=== PATIENT | female | born 1940 | race African-American/Black ===

== ENCOUNTER 2023-05-16 18:02 | Emergency (ER) | payer OTHER ==
[~2023-05-16] VITALS: Ht 170.2 cm; Wt 59.0 kg
[2023-05-16 18:12] VITALS: O2SAT 100
[2023-05-16 19:32] VITALS: PULSE 78; RESP 16; TEMP 98.7
[2023-05-16] MEDS ORDERED: PIPERACILLIN/TAZ 3.375G PREMIX 50 ML IV NR (20:00)
[2023-05-16] MEDS ORDERED: PIPERACILLIN/TAZOBACTAM 3.375GM/50ML PREMIX IV ONE (20:00)
[2023-05-16 21:46] LABS: CHLORIDE 110 mEq/L (98-107)
[2023-05-16 21:54] LABS: HEMATOCRIT. 30.1 % (36.0-48.0); HEMOGLOBIN. 9.9 g/dL (12.0-16.0); MEAN CORPUSCULAR HEMOGLOBIN 26.2 pg (28.0-32.0); MEAN CORPUSCULAR VOLUME 79.7 fL (81.0-99.0); MEAN PLATELET VOLUME 6.8 fl (7.4-10.4); PLATELET 410 x1000/uL (130-400); RED BLOOD CELL COUNT 3.77 mill/uL (4.2-5.4); RED CELL DISTRIBUTION WIDTH 16.9 % (11.6-14.6)
[2023-05-16 23:32] LABS: PLATELET ESTIMATE SLIGHTLY INCREASED
[2023-05-17] MEDS ORDERED: HYDROCODONE/ACETAMINOPHEN 5/325MG TABLET PO ONE (01:30)
[2023-05-17] MEDS ORDERED: CLONIDINE 0.1MG TABLET PO ONE (02:30)
[2023-05-17] MEDS ORDERED: HYDROCODONE/ACETAMINOPHEN 5/325MG TABLET PO NR (02:45)
[2023-05-17] MEDS ORDERED: CLONIDINE 0.1MG TABLET PO NR (02:45)
[2023-05-17] MEDS ORDERED: LABETALOL 5MG/ML SYR 20 MG/4 ML SYRINGE IV ONE (04:00)
[2023-05-17 04:04] VITALS: BP 201/97
== END 2023-05-17 05:02 | disposition short-term general hospital (02) ==
LOC: ER 18:02
DX: L03.116 Cellulitis of left lower limb (principal); I82.409 Acute embolism and thrombosis of unspecified deep veins of unspecified lower extremity; I49.9 Cardiac arrhythmia, unspecified
CPT/HCPCS: 99285; 96366; 96365; 93971; 71045; 80053; 83880; 83605; 85025; 87040; 84484; 36415; 73590; 93005; 96375; J3490; J2543

== ENCOUNTER 2023-06-05 18:25 | Emergency (ER) | payer OTHER ==
[~2023-06-05] VITALS: Ht 160 cm; Wt 66.0 kg
[2023-06-05 18:29] VITALS: O2SAT 98
[2023-06-05] MEDS ORDERED: VANCOMYCIN 1G PREMIX 200 ML IV ONE (19:00)
[2023-06-05] MEDS ORDERED: PIPERACILLIN/TAZ 3.375G PREMIX 50 ML IV ONE (19:00)
[2023-06-05 19:49] LABS: BASOPHILS % 0.2 % (0.0-2.0); EOSINOPHILS % 0.5 % (0.0-5.0); HEMATOCRIT. 22.6 % (36.0-48.0); HEMOGLOBIN. 7.6 g/dL (12.0-16.0); LYMPHOCYTES % 9.1 % (20.0-50.0); MEAN CORPUSCULAR HEMOGLOBIN 25.4 pg (28.0-32.0); MEAN PLATELET VOLUME 6.5 fl (7.4-10.4); MONOCYTES % 8.5 % (2.0-8.0); NEUTROPHILS % 81.7 % (40.0-76.0); PLATELET 569 x1000/uL (130-400); RED BLOOD CELL COUNT 2.97 mill/uL (4.2-5.4); RED CELL DISTRIBUTION WIDTH 17.5 % (11.6-14.6)
[2023-06-05 19:56] LABS: PROTHROMBIN TIME 10.6 sec (9.6-11.0)
[2023-06-05 20:18] LABS: CHLORIDE 111 mEq/L (98-107)
[2023-06-05 23:50] VITALS: BP 157/55; PULSE 94; RESP 14; TEMP 98.1
== END 2023-06-06 00:13 | disposition short-term general hospital (02) ==
LOC: ER 18:25 → CANBEDREQ 06-07 22:08
DX: L03.116 Cellulitis of left lower limb (principal); I10 Essential (primary) hypertension; Z86.73 Personal history of transient ischemic attack (TIA), and cerebral infarction without residual deficits
CPT/HCPCS: 36415; 73660; 80053; 84145; 85025; 99284

== ENCOUNTER 2023-07-11 19:50 | Emergency (ER) | payer OTHER ==
[~2023-07-11] VITALS: Ht 152.4 cm; Wt 50.0 kg
[2023-07-11 19:54] VITALS: O2SAT 99
[2023-07-11] MEDS ORDERED: VANCOMYCIN 1G PREMIX 200 ML IV SCH (23:00)
[2023-07-11] MEDS ORDERED: CEFEPIME 2,000 MG in DEXT 5% WATER 100 ML IV SCH (23:00)
[2023-07-11 23:50] LABS: BASOPHILS % 0.9 % (0.0-2.0); DIFFERENTIAL COMMENT 0; EOSINOPHILS % 2.1 % (0.0-5.0); HEMATOCRIT. 26.6 % (36.0-48.0); LYMPHOCYTES % 15.6 % (20.0-50.0); MEAN CORPUSCULAR HEMOGLOBIN 25.4 pg (28.0-32.0); MEAN CORPUSCULAR VOLUME 74.7 fL (81.0-99.0); MEAN PLATELET VOLUME 6.5 fl (7.4-10.4); MONOCYTES % 6.9 % (2.0-8.0); NEUTROPHILS % 74.5 % (40.0-76.0); PLATELET 625 x1000/uL (130-400); RED BLOOD CELL COUNT 3.56 mill/uL (4.2-5.4); RED CELL DISTRIBUTION WIDTH 21.9 % (11.6-14.6); WHITE BLOOD COUNT 7.7 x1000/uL (4.5-11.0)
[2023-07-12 00:08] LABS: CHLORIDE 107 mEq/L (98-107); INDEX HEMOLYSI 1 (1-3); INDEX ICTERIC 1 (1-4); INDEX LIPEMIC 1 (1-3); POTASSIUM 3.4 mEq/L (3.5-5.1); SODIUM 138 mEq/L (136-145)
[2023-07-12 00:30] LABS: UREA NITROGEN BLOOD 24 mg/dL (7-21)
[2023-07-12 00:53] LABS: ALBUMIN 2.6 g/dL (3.4-5.0); ASPARTATE AMINOTRANSFERASE 13 IU/L (15-37); BILIRUBIN TOTAL 0.4 mg/dL (0.1-1.0); CALCIUM 8.8 mg/dL (8.5-10.1); CARBON DIOXIDE 29 mEq/L (21-32); CREATININE 1.7 mg/dL (0.6-1.3); GLUCOSE 103 mg/dL (70-105)
[2023-07-12 00:54] LABS: ALANINE AMINOTRANSFERASE 22 IU/L (13-61)
[2023-07-12 03:30] VITALS: BP 126/50; PULSE 72; RESP 20; TEMP 98
== END 2023-07-12 04:00 | disposition short-term general hospital (02) ==
LOC: ER 20:06
DX: L97.919 Non-pressure chronic ulcer of unspecified part of right lower leg with unspecified severity (principal); I10 Essential (primary) hypertension; Z20.822 Contact with and (suspected) exposure to COVID-19; Z86.73 Personal history of transient ischemic attack (TIA), and cerebral infarction without residual deficits
CPT/HCPCS: 99285; 96365; 96367; 80053; 85025; 87040; 36415; 87426; J0692; J3370; J7060; C9803

== ENCOUNTER 2023-08-22 15:28 | Emergency (ER) | payer OTHER ==
[~2023-08-22] VITALS: Ht 162.6 cm; Wt 56.0 kg
[2023-08-22] MEDS ORDERED: AMLODIPINE (15:43)
[2023-08-22] MEDS ORDERED: ATORVASTATIN (15:43)
[2023-08-22] MEDS ORDERED: GABAPENTIN (15:43)
[2023-08-22] MEDS ORDERED: LISINOPRIL (15:43)
[2023-08-22 15:44] VITALS: O2SAT 100
[2023-08-22] MEDS ORDERED: ELIQUIS (15:44)
[2023-08-22 16:13] LABS: HEMATOCRIT. 30.8 % (36.0-48.0); HEMOGLOBIN. 9.7 g/dL (12.0-16.0); MEAN CORPUSCULAR HEMOGLOBIN 23.4 pg (28.0-32.0); MEAN CORPUSCULAR HGB CONC 31.6 g/dL (31.0-37.0); MEAN CORPUSCULAR VOLUME 74.3 fL (81.0-99.0); MEAN PLATELET VOLUME 6.6 fl (7.4-10.4); PLATELET 483 x1000/uL (130-400); RED BLOOD CELL COUNT 4.15 mill/uL (4.2-5.4); RED CELL DISTRIBUTION WIDTH 22.2 % (11.6-14.6); WHITE BLOOD COUNT 8.5 x1000/uL (4.5-11.0)
[2023-08-22 16:17] LABS: CHLORIDE 106 mEq/L (98-107); INDEX HEMOLYSI 1 (1-3); INDEX ICTERIC 1 (1-4); INDEX LIPEMIC 1 (1-3); POTASSIUM 3.6 mEq/L (3.5-5.1); SODIUM 139 mEq/L (136-145)
[2023-08-22 16:18] LABS: CALCIUM 9.6 mg/dL (8.5-10.1)
[2023-08-22 16:20] LABS: PROTHROMBIN TIME 10.3 sec (9.6-11.0)
[2023-08-22 16:23] LABS: DIFFERENTIAL COMMENT 1
[2023-08-22 16:47] LABS: ALANINE AMINOTRANSFERASE 24 IU/L (13-61); ALBUMIN 2.7 g/dL (3.4-5.0); ASPARTATE AMINOTRANSFERASE 20 IU/L (15-37); CARBON DIOXIDE 25 mEq/L (21-32); CREATININE 1.4 mg/dL (0.6-1.3); GLUCOSE 107 mg/dL (70-105); PROTEIN TOTAL 6.8 g/dL (6.0-8.3); UREA NITROGEN BLOOD 18 mg/dL (7-21)
[2023-08-22 16:54] LABS: ANISOCYTOSIS 2+; HYPOCHROMASIA 1+; MICROCYTOSIS 2+; PLATELET ESTIMATE INCREASED
[2023-08-22 17:04] LABS: BILIRUBIN TOTAL 0.6 mg/dL (0.1-1.0)
[2023-08-22] MEDS ORDERED: VANCOMYCIN 1G PREMIX 200 ML IV SCH (19:45)
[2023-08-22] MEDS ORDERED: PIPERACILLIN/TAZOBACTAM 3.375GM/50ML PREMIX IV ONE (19:45)
[2023-08-22] MEDS ORDERED: PIPERACILLIN/TAZ 3.375G PREMIX 50 ML IV NR (20:00)
[2023-08-22 21:03] VITALS: TEMP 97.7
[2023-08-23 00:01] VITALS: BP 145/51; PULSE 80; RESP 20
== END 2023-08-23 | disposition short-term general hospital (02) ==
LOC: ER 15:28
DX: T74.91XA Unspecified adult maltreatment, confirmed, initial encounter (principal); S00.212A Abrasion of left eyelid and periocular area, initial encounter; L97.929 Non-pressure chronic ulcer of unspecified part of left lower leg with unspecified severity; R41.82 Altered mental status, unspecified; I10 Essential (primary) hypertension; Z86.73 Personal history of transient ischemic attack (TIA), and cerebral infarction without residual deficits; Z98.890 Other specified postprocedural states; X58.XXXA Exposure to other specified factors, initial encounter; Y93.89 Activity, other specified; Y92.89 Other specified places as the place of occurrence of the external cause; Y99.8 Other external cause status
CPT/HCPCS: 99285; 70450; 96365; 87426; 80053; 85025; 85610; 36415; 73700; J2543; J3370; C9803